=== PATIENT | female | born 1985 | race Caucasian/White ===

== ENCOUNTER → 2017-09-26 | Outpatient (CLI) | payer OTHER ==
[2017-09-26 13:24] LABS: BASO % 0.3 % (0.0-1.0); EOS # 0.1 10^3/uL (0.0-0.50); EOS % 1.4 % (0.0-3.0); HEMATOCRIT 36.1 % (36.0-47.0); HEMOGLOBIN 12.3 g/dl (12.0-15.5); IMMATURE GRANULOCYTE % 0.3 % (0-3.0); LYMPH # 1.8 10^3/uL (1.5-6.5); LYMPH % 24.8 % (24.0-44.0); MEAN CORPUSCULAR HEMOGLOBIN 31.8 pg (27.0-33.0); MEAN CORPUSCULAR HGB CONC 34.1 g/dl (32.0-36.5); MEAN CORPUSCULAR VOLUME 93.3 fl (80.0-96.0); MONO # 0.7 10^3/uL (0.0-0.8); MONO % 9.1 % (0.0-5.0); NEUTROPHILS # 4.6 10^3/uL (1.8-7.7); NEUTROPHILS % 64.1 % (36.0-66.0); PLATELET COUNT, AUTOMATED 229 10^3/uL (150-450); RED BLOOD COUNT 3.87 10^6/uL (4.00-5.40); RED CELL DISTRIBUTION WIDTH 11.9 % (11.5-14.5); WHITE BLOOD COUNT 7.1 10^3/uL (4.0-10.0)
[2017-09-26 17:44] LABS: CHLAMYDIA DNA AMPLIFICATION NEGATIVE (NEGATIVE); GC DNA AMPLIFICATION NEGATIVE (NEGATIVE)
[2017-09-27 09:02] LABS: RUBELLA IgG QUALITATIVE IMMUNE (IMMUNE)
[2017-09-27 09:13] LABS: HBsAg Prenatal NEGATIVE (NEGATIVE)
[2017-09-27 09:31] LABS: HIV 1&2 SCREEN CENTAUR NEGATIVE (NEGATIVE)
[2017-09-27 09:31] LABS: HEPATITIS C VIRUS ABY INDEX 0.1 INDEX (<0.8)
== END ==
LOC: M SMT 08:38
DX: Z3A.10 10 weeks gestation of pregnancy (principal); Z34.81 Encounter for supervision of other normal pregnancy, first trimester

== ENCOUNTER → 2017-10-24 | Outpatient (CLI) | payer OTHER | LOC: M SMT 09:37 | DX: Z36.89 Encounter for other specified antenatal screening (principal); Z3A.00 Weeks of gestation of pregnancy not specified | CPT/HCPCS: 36415 ==

== ENCOUNTER → 2017-11-22 | Outpatient (CLI) | payer OTHER | LOC: M SMT 08:04 | DX: Z36.89 Encounter for other specified antenatal screening (principal); Z3A.18 18 weeks gestation of pregnancy | CPT/HCPCS: 76811 ==

== ENCOUNTER → 2017-12-20 | Outpatient (CLI) | payer OTHER | LOC: M SMT 07:58 | DX: Z34.02 Encounter for supervision of normal first pregnancy, second trimester (principal); Z36.89 Encounter for other specified antenatal screening; Z3A.21 21 weeks gestation of pregnancy | CPT/HCPCS: 76816 ==

== ENCOUNTER → 2018-01-17 | Outpatient (CLI) | payer OTHER ==
[2018-01-17 13:48] LABS: BASO % 0.2 % (0.0-1.0); EOS # 0.1 10^3/uL (0.0-0.50); EOS % 0.6 % (0.0-3.0); HEMATOCRIT 37.6 % (36.0-47.0); HEMOGLOBIN 12.5 g/dl (12.0-15.5); LYMPH % 20.4 % (24.0-44.0); MEAN CORPUSCULAR HEMOGLOBIN 31.4 pg (27.0-33.0); MEAN CORPUSCULAR HGB CONC 33.2 g/dl (32.0-36.5); MEAN CORPUSCULAR VOLUME 94.5 fl (80.0-96.0); MONO # 0.9 10^3/uL (0.0-0.8); MONO % 8.9 % (0.0-5.0); NEUTROPHILS # 6.8 10^3/uL (1.8-7.7); NEUTROPHILS % 69.3 % (36.0-66.0); PLATELET COUNT, AUTOMATED 228 10^3/uL (150-450); RED BLOOD COUNT 3.98 10^6/uL (4.00-5.40); WHITE BLOOD COUNT 9.8 10^3/uL (4.0-10.0)
== END ==
LOC: M SMT 09:06
PROVIDERS: ATTEND Specialist
DX: Z36.89 Encounter for other specified antenatal screening (principal)
CPT/HCPCS: 36415; 82950; 85025; 86850; 86900; 86901; J2790

== ENCOUNTER → 2018-02-21 | Outpatient (REF) | payer OTHER | LOC: M LAB REF 13:07 | PROVIDERS: ATTEND Advanced Practice Midwife | DX: Z34.83 Encounter for supervision of other normal pregnancy, third trimester (principal); Z36.89 Encounter for other specified antenatal screening ==

== ENCOUNTER → 2018-03-28 | Outpatient (REF) | payer OTHER | LOC: M LAB REF 13:13 | PROVIDERS: ATTEND Obstetrics & Gynecology | DX: Z34.83 Encounter for supervision of other normal pregnancy, third trimester (principal); Z3A.00 Weeks of gestation of pregnancy not specified ==

== ENCOUNTER → 2018-04-13 | Outpatient (CLI) | payer OTHER ==
[~2018-04-13] MED LIST: IBUP-1114 PO; MAPA500T2 PO; PRENTAB9 PO
[2018-04-13 17:21] LABS: HEMATOCRIT 36.4 % (36.0-47.0); HEMOGLOBIN 12.5 g/dl (12.0-15.5); MEAN CORPUSCULAR HEMOGLOBIN 31.6 pg (27.0-33.0); MEAN CORPUSCULAR HGB CONC 34.3 g/dl (32.0-36.5); MEAN CORPUSCULAR VOLUME 91.9 fl (80.0-96.0); PLATELET COUNT, AUTOMATED 221 10^3/uL (150-450); RED BLOOD COUNT 3.96 10^6/uL (4.00-5.40); WHITE BLOOD COUNT 8.9 10^3/uL (4.0-10.0)
[2018-04-13 17:55] LABS: ALBUMIN 2.6 GM/DL (3.2-5.2); BILIRUBIN,DIRECT 0.2 MG/DL (0.0-0.2); BILIRUBIN,TOTAL 0.3 MG/DL (0.2-1.0); TOTAL PROTEIN 5.8 GM/DL (6.4-8.2)
== END ==
LOC: M LAB 16:54
PROVIDERS: ATTEND Advanced Practice Midwife
DX: O26.893 Other specified pregnancy related conditions, third trimester (principal)

== ENCOUNTER 2018-04-16 12:02 | Inpatient (IN) | payer OTHER ==
[2018-04-16] VITALS (24 sets, daily range): BP systolic 98–136; BP diastolic 57–91
[~2018-04-16] VITALS: Ht 165.1 cm; Wt 68.0 kg
[2018-04-16] MEDS ORDERED: PRENTAB9 PO (12:29)
--- NOTE | 2018-04-16 12:44 | HPEPDOC ---
Obstetrical History & Physical General Date of Admission Apr 16, 2018 at 12:02 Primary Care Physician: JOVANNA PLASCENCIA CNM History of Present Illness Patient is a 32-year-old female who is a at 39.3 weeks gestation with an LIZZY of 04/20/18 based off of her LMP and consistent with her 1st trimester ultrasound. Her has been complicated by elevated liver enzymes and complaints of itching consistent with the diagnosis of cholestasis. She was seen in the office today and sent over for IOL. She reports active movement. She denies leaking of fluid, vaginal bleeding, or contractions. Chief Complaint: Other (cholestasis) Age: 32 : 1 Term: 0 Pre-term: 0 Abortions: 0 Livin Care Care: Good Care Dating Final EDC: Apr 20, 2018 LMP: Jul 14, 2017 EGA at Admission: 39.3 Antepartum Course Diagnos(e)s elevated liver enzymes: Intrahepatic cholestasis of Height (inches): 65 Pre- weight (lbs.): 124 Admission Weight (lbs.): 154 Change in Weight (lbs.): 30 Past Medical History Past Obstetrical History : Past Obstetrical History: Primgravida Past Medical History Medical History varicella as a child Surgical History: [place] teeth Family History Significant Family History: Other (sister with DVT) Social History Marital Status: Family situation: Spouse/partner home Psychosocial History: No pertinent psych hx * Smoker: non-smoker Alcohol: Denies Drugs: denies Abuse Violence Screening Have you been hit/kicked/slapp: No Have you been sexually assault: No Imunizations Tdap status: current Influenza Status: current Allergies Coded Allergies: No Known Allergies (Unverified , 04/16/18) Medications Scheduled Multivitamins/ ( 27-0.8 mg) 1 Tab Tab, 1 TAB PO DAILY Physical Examination Physical Examination GENERAL: Alert and oriented times three. BREAST: . ABDOMEN: Gravid and non-tender to touch. FETUS: Is vertex (VTX) by sterile vaginal examination (SVE), fetus is vertex (VTX) by Ben. HEART RATE: Regular rate and rhythm. LUNGS: Clear to auscultation (CTA). EXTREMITIES: No edema. No clonus. Deep tendon reflexes (DTRs) + 2. Laboratory Data [facility] Laboratory Tests 2 04/16/18 12:25: Serology Scanned Report Hepatitis B Testing Pertinent Laboratoy Data RBC Antibody Screen: Negative HIV: Negative Hepatitis B: Negative Rapid Plasma Reagin: Nonreactive Rubella: Immune Chlamydia/Gonorrhea: Negative Group B Streptococcus: Negative Vaginal Examination Dilation: 1cm Effacement: 50% Station: -3 Cervical Consistency: Soft Cervical Position: Anterior Presentation: Cephalic presentation Position: Vertex (occiput) Assessment Heart Rate (FHR): 120 Variability: Moderate Accelerations: Positive Decelerations: None Tocometer Contractions: Yes Multi-drug resistant Organism: No history of MDRO Assessment/Plan Assessment IUP at 39.3 weeks gestation Category I FHR tracing intrahepatic cholestasis of GBS negative. Plan Admit to L&D. Dr. Jerry sent over from office for IOL today. Counseled on IOL. OOB ad fred. Diet: regular. Group B Streptococcus negative. Labs and intravenous (IV) per unit protocol. Counseled on cytotec and IV Pitocin for induction of labor. Anesthesia consult per patient's request. Lactated Ringers (LR): Bolus 800 cc prior to epidural and as needed. Anticipate cervical ripening. C-S as appropriate. JOVANNA PLASCENCIA CNM Apr 16, 2018 12:44
[2018-04-16 12:58] LABS: HEMATOCRIT 40.1 % (36.0-47.0); HEMOGLOBIN 14.2 g/dl (12.0-15.5); MEAN CORPUSCULAR HEMOGLOBIN 31.5 pg (27.0-33.0); MEAN CORPUSCULAR HGB CONC 35.4 g/dl (32.0-36.5); MEAN CORPUSCULAR VOLUME 88.9 fl (80.0-96.0); PLATELET COUNT, AUTOMATED 263 10^3/uL (150-450); RED BLOOD COUNT 4.51 10^6/uL (4.00-5.40); WHITE BLOOD COUNT 10.1 10^3/uL (4.0-10.0)
[2018-04-16] MEDS ORDERED: miSOPROStol 50 MCG 1/2 TAB (S0191) PO SCH (13:00)
[2018-04-16] MEDS ORDERED: LACTATED RINGER'S 1000 ML IV ONE (13:45)
[2018-04-16] MEDS ORDERED: LR 1,000 ML IV SCH (18:04)
--- NOTE | 2018-04-16 18:24 | IPNPDOC ---
Obstetrical Progress Note Date of Service Apr 16, 2018 Subjective Patient reports she is comfortable. Objective Vital Signs Date Time Temp Pulse Resp B/P (MAP) Pulse Ox O2 Delivery O2 Flow Rate FiO2 04/16/18 18:08 98.1 66 18 119/76 (90) Assessment Heart Rate (FHR): 120 Variability: Moderate Accelerations: Positive Decelerations: None Heart Rate Tracing: Category I Tocometer Contractions: Yes Frequency: irregular Sterile Vaginal Examination Dilation: 1cm Effacement (%): other (75%) Station: -2 Cervical Consistency: Soft Cervical Position: Anterior Postion/Presentation: Cephalic presentation Assessment and Plan Age: 32 : 1 Term: 0 Pre-term: 0 Abortions: 0 Livin EGA at Admission: 39.3 Status: Reassuring Group B Streptococcus: Negative Anticipate: Vaginal Delivery Additional Comments Cooks Alonso bulb inserted using 60/40. Patient tolerated well. Pitocin to be started per order. JOVANNA PLASCENCIA CNM Apr 16, 2018 18:24
[2018-04-16] MEDS: OXYTOCIN DRIP 30 UNITS in APPROPRIATE DILUENT 1 EA IV SCH (18:33)
[2018-04-16] MEDS ORDERED: FENTANYL 2MCG/ML ROPIVACAINE 0.2% IN 0.9% NACL 100ML IVBAG As Ordered ONE (22:14)
[2018-04-17] MEDS ORDERED: ePHEDrine SULFATE 25 MG/5 ML(5MG/ML) SYRINGE As Ordered ONE (00:38)
[2018-04-17] MEDS ORDERED: LACTATED RINGER'S 1000 ML IV PRN (01:30)
[2018-04-17] MEDS ORDERED: NALOXONE INJ 0.4 MG/1 ML VIAL (J2310) IV PRN (01:30)
[2018-04-17] MEDS ORDERED: REFRIGERATOR IV KEYS XX PRN (01:30)
[2018-04-17] MEDS ORDERED: EPIDURAL COMMENT XX SCH (01:30)
[2018-04-17] MEDS ORDERED: FENTANYL/ROPIVACAINE/NACL BAG 100 ML EPIDURAL SCH (01:30)
[2018-04-17] MEDS ORDERED: diphenhydrAMINE INJ 50MG/ML VIAL (J1200) IV PRN (01:30)
[2018-04-17] MEDS ORDERED: ONDANSETRON 4MG/2ML VIAL (J2405) IV PRN (01:30)
[2018-04-17] MEDS ORDERED: ePHEDrine SULFATE 25 MG/5 ML(5MG/ML) SYRINGE IV PRN (01:30)
[2018-04-17] MEDS ORDERED: EPIDURAL/PCA KEYS XX PRN (01:30)
[2018-04-17] MEDS: OXYTOCIN DRIP 30 UNITS in APPROPRIATE DILUENT 1 EA IV SCH (04:19)
[2018-04-17] MEDS ORDERED: ANUSOL HC CREAM 30GM TOP PRN ×2 (05:30→06:00)
[2018-04-17] MEDS ORDERED: RHOGAM 300 MCG (1500 IU) INJ (J2790) IM SCH ×2 (05:30→06:00)
[2018-04-17] MEDS ORDERED: MEASLES,MUMPS,RUBELLA VACCINE INJ (MMR-II) (90707) SC SCH ×2 (05:30→06:00)
[2018-04-17] MEDS ORDERED: DIBUCAINE 1% OINTMENT 30GM TOP PRN (05:30)
[2018-04-17] MEDS ORDERED: DOCUSATE SODIUM 100 MG CAP PO PRN ×2 (05:30→06:00)
[2018-04-17] MEDS ORDERED: ACETAMINOPHEN 500 MG TAB PO PRN (05:30)
[2018-04-17] MEDS ORDERED: OXYTOCIN DRIP 30 UNITS in APPROPRIATE DILUENT 1 EA IV SCH ×2 (05:30→05:50)
[2018-04-17] MEDS ORDERED: IBUPROFEN 800 MG TAB PO PRN (05:30)
[2018-04-17] MEDS ORDERED: METHYLERGONOVINE MALEATE 0.2 MG TAB PO PRN ×2 (05:30→06:00)
--- NOTE | 2018-04-17 05:44 | DNPDOC ---
[facility] Delivery Note Delivery Note DATE OF DELIVERY: 04/17/18 at 0343 PREDELIVERY DIAGNOSIS: 39-4/7 weeks' gestation and labor. POST DELIVERY DIAGNOSIS: Delivered. PROCEDURE: Spontaneous vaginal delivery. FULL STACK SOFTWARE DEVELOPER: Jovanna Schulte CNM, RUTH ANESTHESIA: epidural. ESTIMATED BLOOD LOSS: 350 mL. FINDINGS: 6 pounds 11 ounces; 3020 grams; male , Score 9/9, intrahepatic cholestasis of . DELIVERY SUMMARY: Patient is a 32-year-old female who is now a who presented to L&D for an induction of labor for ICP. She received 1 dose of Cytotec, a love bulb, and IV Pitocin for induction. She progressed to fully dilated at 0320 and pushed to a living male in the EDWARDO position with restitution to ROT at 0343. The anterior shoulder delivered with ease and the corpus immediately followed. The baby was placed on the maternal abdomen active and crying [id number]. The cord was clamped x2 after pulsation sent and cut by the FOB. A 3-vessel cord was noted. The placenta delivered spontaneously and intact at 0356. Uterine hemostasis was achieved via rapid infusion of IV Pitocin and fundal massage. The vagina and perineum were inspect and found to have a right labial laceration into a right wall laceration that was repaired with a 3.[address]-1. Mom plans to breastfeed her and they are naming him Carlos. Both mom and baby are in stable condition. JOVANNA SCHULTE CNM Apr 17, 2018 05:44
[2018-04-17] MEDS: ACETAMINOPHEN 500 MG TAB PO PRN ×3 (06:38→22:00)
[2018-04-17] MEDS: PRENATAL VITAMINS CHEWABLE TABLET PO SCH (09:00)
[2018-04-17] MEDS ORDERED: PRENATAL VITAMINS CHEWABLE TABLET PO SCH (09:00)
[2018-04-17 14:00] VITALS: BP 110/76
[2018-04-17 18:00] VITALS: BP 120/74
[2018-04-17] MEDS: DIBUCAINE 1% OINTMENT 30GM TOP PRN (21:59)
[2018-04-18 05:43] VITALS: BP 133/80
[2018-04-18] MEDS: PRENATAL VITAMINS CHEWABLE TABLET PO SCH (08:20)
[2018-04-18] MEDS: IBUPROFEN 800 MG TAB PO PRN (08:21)
[2018-04-18] MEDS: ACETAMINOPHEN 500 MG TAB PO PRN (15:43)
[2018-04-18 18:00] VITALS: BP 119/95
[2018-04-19] MEDS: IBUPROFEN 800 MG TAB PO PRN (05:26)
[2018-04-19 06:43] VITALS: BP 122/81
[2018-04-19] MEDS: PRENATAL VITAMINS CHEWABLE TABLET PO SCH (07:40)
[2018-04-19] MEDS ORDERED: IBUP-1114 PO (07:45)
[2018-04-19] MEDS ORDERED: MAPA500T2 PO (07:45)
[2018-04-19] MEDS: ACETAMINOPHEN 500 MG TAB PO PRN (09:32)
[2018-04-19] MEDS: DIBUCAINE 1% OINTMENT 30GM TOP PRN (10:21)
== END 2018-04-19 10:25 | disposition home or self-care (01) | DRG 805 ==
LOC: M LDI 12:02 → M OBS 04-17 06:50
PROVIDERS: ADMIT Advanced Practice Midwife; ATTEND Advanced Practice Midwife
PROC: 3E0P7GC Introduction of Other Therapeutic Substance into Female Reproductive, Via Natural or Artificial Opening (ICD-10-PCS; 2018-04-16)
PROC: 10E0XZZ Delivery of Products of Conception, External Approach (ICD-10-PCS; principal; 2018-04-17)
PROC: 0HQ9XZZ Repair Perineum Skin, External Approach (ICD-10-PCS; 2018-04-17)
DX: O26.62 Liver and biliary tract disorders in childbirth (principal); Z37.0 Single live birth; K83.1 Obstruction of bile duct; Z3A.39 39 weeks gestation of pregnancy; O70.0 First degree perineal laceration during delivery